=== PATIENT | female | born 1955 | race Caucasian/White ===

== ENCOUNTER 2016-02-28 13:58 | Outpatient (CLI) | payer MEDICAID | END 2016-02-28 13:59 | disposition home or self-care (01) | DX: E11.9 Type 2 diabetes mellitus without complications (principal) ==

== ENCOUNTER 2016-03-13 08:00 | Outpatient (CLI) | payer MEDICAID | END 2016-03-13 08:01 | disposition home or self-care (01) | DX: E78.5 Hyperlipidemia, unspecified (principal); R74.8 Abnormal levels of other serum enzymes ==

== ENCOUNTER 2016-03-18 09:31 | Outpatient (CLI) | payer MEDICAID | END 2016-03-18 09:32 | disposition home or self-care (01) | DX: R74.8 Abnormal levels of other serum enzymes (principal) ==

== ENCOUNTER 2016-09-06 09:32 | Outpatient (CLI) | payer MEDICAID ==
[2016-09-06 12:47] LABS: BASOPHILS # (AUTO) 0.1 10^3/uL (0.0-0.1); BASOPHILS % (AUTO) 0.8 %; EOSINOPHILS # (AUTO) 0.1 10^3/uL (0.0-0.7); EOSINOPHILS % (AUTO) 1.5 %; HCT - HEMATOCRIT 38.2 % (37.0-47.0); HGB - HEMOGLOBIN 12.7 g/dL (12.0-16.0); LYMPHOCYTES # (AUTO) 3.9 10^3/uL (1.5-3.5); LYMPHOCYTES % (AUTO) 39.9 %; MEAN CORPUSCULAR HEMOGLOBIN 28.4 pg (27.0-31.0); MEAN CORPUSCULAR HGB CONC 33.3 g/dL (32.0-36.0); MEAN CORPUSCULAR VOLUME 85.5 fL (81.0-99.0); MEAN PLATELET VOLUME 9.4 fL (7.9-10.8); MONOCYTES # (AUTO) 0.6 10^3/uL (0.0-1.0); MONOCYTES % (AUTO) 5.9 %; NEUTROPHILS % (AUTO) 51.9 %; RED BLOOD COUNT 4.46 10^6/uL (4.20-5.40); RED CELL DISTRIBUTION WIDTH 14.2 % (12.0-15.0); UNCORRECTED WHITE BLOOD COUNT 9.7 x10^3/uL; WHITE BLOOD COUNT 9.7 x10^3/uL (4.8-10.8)
[2016-09-06 13:48] LABS: ALBUMIN/GLOBULIN RATIO 1.4 (1.0-2.2); BILIRUBIN,TOTAL 0.6 mg/dL (0.2-1.0); BUN - BLOOD UREA NITROGEN 28 mg/dL (6-20); CALCIUM 9.6 mg/dL (8.5-10.3); CARBON DIOXIDE - CO2 25 mmol/L (21-32); CHLORIDE 106 mmol/L (101-111); CHOL/HDL RATIO 2.6 (<4.4); CHOLESTEROL 143 mg/dL; CREATININE 0.8 mg/dL (0.4-1.0); GFR - MDRD 73 (>89); GLUCOSE 137 mg/dL (70-100); HDL CHOLESTEROL 55 mg/dL; LDL/HDL RATIO 1.2 (<4.4); SODIUM 139 mmol/L (135-145); TOTAL PROTEIN 7.4 g/dL (6.7-8.2); TRIGLYCERIDES 108 mg/dL; VLDL CHOLESTEROL 22 mg/dL
[2016-09-06 14:32] LABS: HEMOGLOBIN A1C 0.65 g/dL
== END 2016-09-06 09:33 | disposition home or self-care (01) ==
LOC: LAB.N 09:32
PROVIDERS: ATTEND Family Medicine
DX: E78.5 Hyperlipidemia, unspecified (principal); E11.9 Type 2 diabetes mellitus without complications; F41.8 Other specified anxiety disorders
CPT/HCPCS: 36415; 80050; 80061; 83036

== ENCOUNTER 2017-04-02 09:10 | Outpatient (CLI) | payer MEDICAID ==
[2017-04-02 12:55] LABS: BASOPHILS # (AUTO) 0.1 10^3/uL (0.0-0.1); BASOPHILS % (AUTO) 0.6 %; EOSINOPHILS # (AUTO) 0.2 10^3/uL (0.0-0.7); EOSINOPHILS % (AUTO) 1.8 %; HGB - HEMOGLOBIN 13.9 g/dL (12.0-16.0); LYMPHOCYTES # (AUTO) 3.5 10^3/uL (1.5-3.5); LYMPHOCYTES % (AUTO) 37.2 %; MEAN CORPUSCULAR HEMOGLOBIN 28.9 pg (27.0-31.0); MEAN CORPUSCULAR HGB CONC 33.8 g/dL (32.0-36.0); MEAN CORPUSCULAR VOLUME 85.5 fL (81.0-99.0); MEAN PLATELET VOLUME 9.9 fL (7.9-10.8); MONOCYTES # (AUTO) 0.5 10^3/uL (0.0-1.0); MONOCYTES % (AUTO) 5.7 %; NEUTROPHILS # (AUTO) 5.1 10^3/uL (1.5-6.6); NEUTROPHILS % (AUTO) 54.7 %; PLT - PLATELET COUNT 310 10^3/uL (130-450); RED BLOOD COUNT 4.79 10^6/uL (4.20-5.40); RED CELL DISTRIBUTION WIDTH 14.1 % (12.0-15.0); WHITE BLOOD COUNT 9.4 x10^3/uL (4.8-10.8)
[2017-04-02 13:22] LABS: HEMOGLOBIN A1C 0.84 g/dL; HEMOGLOBIN A1C % 7.3 % (4.6-6.2)
[2017-04-02 13:37] LABS: ALBUMIN 4.6 g/dL (3.2-5.5); ALBUMIN/GLOBULIN RATIO 1.5 (1.0-2.2); ALKALINE PHOSPHATASE 55 IU/L (42-121); ALT ALANINE AMINOTRANSFERASE 25 IU/L (10-60); AST ASPARTATE AMINOTRANSFERASE 25 IU/L (10-42); BILIRUBIN,TOTAL 0.4 mg/dL (0.2-1.0); BUN - BLOOD UREA NITROGEN 25 mg/dL (6-20); CARBON DIOXIDE - CO2 22 mmol/L (21-32); CHLORIDE 100 mmol/L (101-111); CHOL/HDL RATIO 3.5 (<4.4); CHOLESTEROL 157 mg/dL; CREATININE 0.8 mg/dL (0.4-1.0); GFR - MDRD 73 (>89); GLUCOSE 175 mg/dL (70-100); HDL CHOLESTEROL 45 mg/dL; LDL CHOLESTEROL,CALCULATED 68 mg/dL; LDL/HDL RATIO 1.5 (<4.4); SODIUM 136 mmol/L (135-145); TOTAL PROTEIN 7.6 g/dL (6.7-8.2); VLDL CHOLESTEROL 44 mg/dL
== END 2017-04-02 09:11 | disposition home or self-care (01) ==
LOC: LAB.N 09:10
PROVIDERS: ATTEND Family Medicine
DX: E78.5 Hyperlipidemia, unspecified (principal); E11.9 Type 2 diabetes mellitus without complications
CPT/HCPCS: 36415; 80053; 80061; 83036; 83721; 85025

== ENCOUNTER 2017-05-08 14:11 | Emergency (ER) | payer MEDICAID ==
[2017-05-08] MEDS ORDERED: CETIRIZINE 10 MG TABLET PO STA (15:14)
[2017-05-08] MEDS ORDERED: ACETAMINOPHEN 325 MG TABLET PO STA (15:14)
[2017-05-08] MEDS ORDERED: traMADol 50 MG TABLET PO STA (15:14)
[2017-05-08 15:34] LABS: VBG BASE EXCESS 1.7 mmol/L (-2 - +2); VBG PCO2 37.5 mmHg (41-51); VBG PH 7.451 (7.31-7.41); VBG PO2 69.5 mmHg (25-47); VBG TOTAL CO2 26.7 mmol/L (24-29)
[2017-05-08 15:36] LABS: BASOPHILS # (AUTO) 0.1 10^3/uL (0.0-0.1); BASOPHILS % (AUTO) 1.2 %; EOSINOPHILS # (AUTO) 0.1 10^3/uL (0.0-0.7); EOSINOPHILS % (AUTO) 1.6 %; HGB - HEMOGLOBIN 13.2 g/dL (12.0-16.0); LYMPHOCYTES # (AUTO) 3.6 10^3/uL (1.5-3.5); LYMPHOCYTES % (AUTO) 40.3 %; MEAN CORPUSCULAR HEMOGLOBIN 28.8 pg (27.0-31.0); MEAN CORPUSCULAR HGB CONC 34.3 g/dL (32.0-36.0); MEAN CORPUSCULAR VOLUME 83.8 fL (81.0-99.0); MEAN PLATELET VOLUME 8.9 fL (7.9-10.8); MONOCYTES # (AUTO) 0.7 10^3/uL (0.0-1.0); MONOCYTES % (AUTO) 7.7 %; NEUTROPHILS # (AUTO) 4.5 10^3/uL (1.5-6.6); NEUTROPHILS % (AUTO) 49.2 %; PLT - PLATELET COUNT 258 10^3/uL (130-450); RED BLOOD COUNT 4.59 10^6/uL (4.20-5.40); RED CELL DISTRIBUTION WIDTH 13.4 % (12.0-15.0)
[2017-05-08 15:40] LABS: KETONES, SERUM (ACETEST) NEGATIVE (NEGATIVE)
[2017-05-08 15:46] LABS: ALBUMIN 4.1 g/dL (3.2-5.5); ALBUMIN/GLOBULIN RATIO 1.4 (1.0-2.2); ALKALINE PHOSPHATASE 56 IU/L (42-121); ALT ALANINE AMINOTRANSFERASE 21 IU/L (10-60); AST ASPARTATE AMINOTRANSFERASE 22 IU/L (10-42); BILIRUBIN,TOTAL < 0.2 mg/dL (0.2-1.0); BUN - BLOOD UREA NITROGEN 23 mg/dL (6-20); CALCIUM 10.2 mg/dL (8.5-10.3); CARBON DIOXIDE - CO2 25 mmol/L (21-32); CHLORIDE 102 mmol/L (101-111); CREATININE 0.7 mg/dL (0.4-1.0); GFR - MDRD 85 (>89); GLUCOSE 185 mg/dL (70-100); LIPASE 31 U/L (22-51); MAGNESIUM 1.6 mg/dL (1.7-2.8); SODIUM 140 mmol/L (135-145)
--- NOTE | 2017-05-08 15:49 | ED Physician Documentation ---
PD HPI HEADACHE - Stated complaint Stated Complaint: WEAKNESS/BLOOD SUGAR HIGH - Chief complaint Chief Complaint: General - History obtained from History obtained from: Patient - History of Present Illness Timing - onset: How many weeks ago (she says her blood sugars have been running higher since being taken off Gyburide by PCP about a month ago. Was running higher sugars and so started on different med (Januvia or such) but was having weight gain over a month and still sugars higher. So seen 5 days ago by PCP and taken off the newer med but not replaced with anything. Sugars higher the past 2 -3 days and having some congestion and frontal headache as well.) Timing - onset during: Light activity Timing - details: Gradual onset, Still present, Waxing and waning Worst headache ever?: No: Worst headache ever? Location: Front, Right Quality: Throbbing, Aching Associated symptoms: Other (nasal congestion and some sinus pressure. No sore throat.). No: Fever, Nausea Improved by: No: Dark room, Quiet Worsened by: No: Light, Noise Contributing factors: Hypertension, Recent illness (sinus pressure and congestion). No: Anticoagulated, Trauma Recently seen: Clinic (see above) Review of Systems Constitutional: denies: Fever, Chills Ears: denies: Ear pain (but feeling of plugged) Nose: reports: Rhinorrhea / runny nose, Congestion, Sinus pressure / pain Throat: denies: Sore throat Cardiac: denies: Chest pain / pressure, Palpitations Respiratory: denies: Dyspnea, Cough, Wheezing GI: denies: Abdominal Pain, Nausea, Vomiting, Diarrhea, Bloody / black stool : denies: Dysuria, Frequency Skin: denies: Rash, Lesions PD PAST MEDICAL HISTORY - Past Medical History Past Medical History: Yes Cardiovascular: High cholesterol Respiratory: None Neuro: Motion sickness Endocrine/Autoimmune: Type 2 diabetes GI: GERD : None HEENT: Chronic hearing loss Psych: Depression, Anxiety Musculoskeletal: Other - Past Surgical History Past Surgical History: Yes 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 - Present Medications Home Medications: Ambulatory Orders Medication Instructions Recorded Confirmed Atorvastatin [Lovastatin] 80 mg PO QPM 12/05/13 05/31/15 Fenofibrate 160 mg PO DAILY 12/05/13 05/31/15 Metformin HCl 1,000 mg PO QDBREAKFAST 12/05/13 05/31/15 Metformin HCl 1,500 mg PO QDDINNER 12/05/13 05/31/15 Venlafaxine HCl [Effexor Xr] 75 mg PO BID 12/05/13 05/31/15 [place]-3S/Dha/Epa/Fish Oil [Fish 1 tab PO DAILY 05/26/15 05/31/15 Oil 1,200 mg Softgel] Acetaminophen [Tylenol Extra 500 mg PO Q6HR PRN 05/31/15 05/31/15 Strength] Cetirizine [ZyrTEC] 10 mg PO DAILY #20 tablet 05/08/17 Tramadol HCl 50 mg PO Q6H PRN #20 tablet 05/08/17 glyBURIDE [Diabeta] 2.5 mg PO DAILY #30 tablet 05/08/17 - Allergies Allergies/Adverse Reactions: Allergies Allergy/AdvReac Type Severity Reaction Status Date / Time No Known Drug Allergies Allergy Verified 05/08/17 14:21 - Social History Does the pt smoke?: Yes Smoking Status: Current every day smoker Does the pt drink ETOH?: No Does the pt have substance abuse?: No - Immunizations Immunizations are current?: Yes - POLST Patient has POLST: No PD ED PE NORMAL - Vitals Vital signs reviewed: Yes - General General: Alert and oriented X 3, No acute distress, Well developed/nourished - HEENT HEENT: Ears normal, Moist mucous membranes, Pharynx benign - Neck Neck: Supple, no meningeal sign, No adenopathy - Cardiac Cardiac: RRR, No murmur, No gallop - Respiratory Respiratory: Clear bilaterally - Abdomen Abdomen: Soft, Non tender - Back Back: No CVA TTP - Derm Derm: Normal color, Warm and dry - Neuro Neuro: Alert and oriented X 3, 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, No motor deficit, No sensory deficit, Normal speech Eye Opening: Spontaneous Motor: Obeys Commands Verbal: Oriented GCS Score: 15 - Psych Psych: Normal mood, Normal affect Results - Vitals Vitals: Vital Signs - 24 hr 05/08/17 05/08/17 14:17 16:01 Temperature 36.7 C 36.6 C Heart Rate 92 76 Respiratory 15 16 Rate Blood Pressure 168/90 H 153/76 H O2 Saturation 97 97 Oxygen O2 Source Room air - Labs Labs: Laboratory Tests 05/08/17 05/08/17 05/08/17 14:39 15:26 15:26 WBC 9.0 RBC 4.59 Hgb 13.2 Hct 38.5 MCV 83.8 MCH 28.8 MCHC 34.3 RDW 13.4 Plt Count 258 MPV 8.9 Neut # 4.5 Lymph # 3.6 H [place] # 0.7 Eos # 0.1 Baso # 0.1 Absolute Nucleated RBC 0.01 Nucleated RBC % 0.1 VBG pH VBG pCO2 VBG pO2 VBG HCO3 VBG Total CO2 VBG O2 Saturation VBG Base Excess Sodium 140 Potassium 3.7 Chloride 102 Carbon Dioxide 25 Anion Gap 13.0 BUN 23 H Creatinine 0.7 Estimated GFR (MDRD) 85 L Glucose 185 H POC Whole Bld Glucose 199 H Calcium 10.2 Magnesium 1.6 L Total Bilirubin < 0.2 L AST 22 ALT 21 Alkaline Phosphatase 56 Total Protein 7.0 Albumin 4.1 Globulin 2.9 Albumin/Globulin Ratio 1.4 Lipase 31 Serum Ketones NEGATIVE 05/08/17 15:26 WBC RBC Hgb Hct MCV MCH MCHC RDW Plt Count MPV Neut # Lymph # [place] # Eos # Baso # Absolute Nucleated RBC Nucleated RBC % VBG pH 7.451 H VBG pCO2 37.5 L VBG pO2 69.5 H VBG HCO3 25.5 VBG Total CO2 26.7 VBG O2 Saturation 95.3 H VBG Base Excess 1.7 Sodium Potassium Chloride Carbon Dioxide Anion Gap BUN Creatinine Estimated GFR (MDRD) Glucose POC Whole Bld Glucose Calcium Magnesium Total Bilirubin AST ALT Alkaline Phosphatase Total Protein Albumin Globulin Albumin/Globulin Ratio Lipase Serum Ketones PD MEDICAL DECISION MAKING - ED course Complexity details: reviewed results, considered differential, d/w patient Departure - Departure Disposition: Home, Self Care Clinical Impression: Elevated blood sugar, Sinus headache Headache Qualifiers: Headache type: unspecified Headache chronicity pattern: acute headache Intractability: not intractable Qualified Code(s): R51 - Headache Condition: Stable Record reviewed to determine appropriate education?: Yes Instructions: ED Cephalgia Unspecified Follow-Up: Ramos Thurston MD [Primary Care Provider] - Prescriptions: Cetirizine [ZyrTEC] 10 mg PO DAILY #20 tablet glyBURIDE [Diabeta] 2.5 mg PO DAILY #30 tablet Tramadol HCl 50 mg PO Q6H PRN #20 tablet PRN Reason: Pain Comments: For now we could have you resume the glyburide you had been on initially before the medication changes. Continue the current dose of metformin. The headache may likely be sinus or allergies and so take daily cetirizine antihistamine. Also ibuprofen or naproxen twice daily for the next week and add Tylenol or tramadol if needed for headache. Follow-up with your primary care regarding sugars and medications for it. Return sooner to the ER if you have increasing symptoms with the headache or sugars. Discharge Date/Time: 05/08/17 16:05
[2017-05-08 16:03] VITALS: BP 153/76
== END 2017-05-08 16:05 | disposition home or self-care (01) ==
LOC: ED 14:11
DX: E11.65 Type 2 diabetes mellitus with hyperglycemia (principal); Z79.84 Long term (current) use of oral hypoglycemic drugs; R51 Headache; K21.9 Gastro-esophageal reflux disease without esophagitis; E78.00 Pure hypercholesterolemia, unspecified; F17.200 Nicotine dependence, unspecified, uncomplicated
CPT/HCPCS: 36415; 80053; 82009; 82803; 83690; 83735; 85025; 99283; A9270

== ENCOUNTER 2017-06-29 13:42 | Outpatient (CLI) | payer MEDICAID ==
--- NOTE | 2017-06-29 18:00 | XRAY Report ---
RIGHT WRIST: 06/29/2017 No comparison. INDICATION: Mass of the right wrist. TECHNIQUE: Three views. FINDINGS: Normal alignment. No evidence of acute fracture. There are mild triscaphe degenerative changes. IMPRESSION: MILD TRISCAPHE JOINT OSTEOARTHRITIS. TD: 06/29/2017 17:59 MTDD
== END 2017-06-29 13:43 | disposition home or self-care (01) ==
LOC: DI.N 13:42
PROVIDERS: ATTEND Family Medicine
DX: M25.831 Other specified joint disorders, right wrist (principal); M25.531 Pain in right wrist; M19.031 Primary osteoarthritis, right wrist

== ENCOUNTER 2017-07-04 09:01 | Outpatient (CLI) | payer MEDICAID ==
[2017-07-04 12:47] LABS: CALCIUM 9.7 mg/dL (8.5-10.3); CREATININE 0.8 mg/dL (0.4-1.0)
[2017-07-04 13:05] LABS: HB2 TOTAL 15.2 g/dL; HEMOGLOBIN A1C 1.13 g/dL
== END 2017-07-04 09:02 ==
LOC: LAB.N 09:01
PROVIDERS: ATTEND Family Medicine
DX: E11.9 Type 2 diabetes mellitus without complications (principal)
CPT/HCPCS: 36415; 80048; 83036

== ENCOUNTER 2017-10-02 18:52 | Emergency (ER) | payer MEDICAID ==
[2017-10-02 18:58] VITALS: BP 141/88
[2017-10-02] MEDS ORDERED: HYDROcod/ACET 5/325 Prepack 4 PO STA (19:26)
--- NOTE | 2017-10-02 19:27 | ED Physician Documentation ---
PD HPI LOWER EXT INJURY - Stated complaint Stated Complaint: RT TOE PX - Chief complaint Chief Complaint: Ext Problem - History obtained from History obtained from: Patient - History of Present Illness PD HPI LOW EXT INJURY LOCATION: Right (She ran into something with her right middle toe earlier today and has moderate pain, no other injuries.) Review of Systems Constitutional: reports: Reviewed and negative Cardiac: reports: Reviewed and negative Respiratory: reports: Reviewed and negative PD PAST MEDICAL HISTORY - Past Medical History Past Medical History: Yes Cardiovascular: High cholesterol Respiratory: None Endocrine/Autoimmune: Type 2 diabetes GI: GERD : None HEENT: Chronic hearing loss Psych: Depression, Anxiety Musculoskeletal: Other - Past Surgical History Past Surgical History: Yes 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 - Present Medications Home Medications: Ambulatory Orders Medication Instructions Recorded Confirmed Atorvastatin [Lovastatin] 80 mg PO QPM 12/05/13 10/02/17 Fenofibrate 160 mg PO DAILY 12/05/13 10/02/17 Metformin HCl 1,000 mg PO QDBREAKFAST 12/05/13 10/02/17 Metformin HCl 1,500 mg PO QDDINNER 12/05/13 10/02/17 Venlafaxine HCl [Effexor Xr] 75 mg PO BID 12/05/13 10/02/17 [place]-3S/Dha/Epa/Fish Oil [Fish 1 tab PO DAILY 05/26/15 10/02/17 Oil 1,200 mg Softgel] Acetaminophen [Tylenol Extra 500 mg PO Q6HR PRN 05/31/15 10/02/17 Strength] Cetirizine [ZyrTEC] 10 mg PO DAILY #20 tablet 05/08/17 10/02/17 Tramadol HCl 50 mg PO Q6H PRN #20 tablet 05/08/17 10/02/17 glyBURIDE [Diabeta] 2.5 mg PO DAILY #30 tablet 05/08/17 10/02/17 HYDROcod/ACETAM 5/325 [[place] 5/325] 1 - 2 ea PO Q6H PRN #10 tablet 10/02/17 - Allergies Allergies/Adverse Reactions: Allergies Allergy/AdvReac Type Severity Reaction Status Date / Time No Known Drug Allergies Allergy Verified 10/02/17 19:23 - Social History Does the pt smoke?: Yes Smoking Status: Current every day smoker Does the pt drink ETOH?: No Does the pt have substance abuse?: No - Immunizations Immunizations are current?: Yes - POLST Patient has POLST: No PD ED PE NORMAL - Vitals Vital signs reviewed: Yes - General General: Alert and oriented X 3, No acute distress - Extremities Extremities: Other (Right middle toe is ecchymotic across the top and tender but without limited range of motion or neurovascular compromise. No open wounds.) - Neuro Neuro: Alert and oriented X 3, Normal speech Results - Vitals Vitals: Vital Signs - 24 hr 10/02/17 18:54 Temperature 36.4 C L Heart Rate 83 Respiratory 18 Rate Blood Pressure 141/88 H O2 Saturation 95 Oxygen O2 Source Room air - Rads (name of study) R 3rd toe Radiology: EMP read contemporaneously (normal) PD MEDICAL DECISION MAKING - Sepsis Event Vital Signs: Vital Signs - 24 hr 10/02/17 18:54 Temperature 36.4 C L Heart Rate 83 Respiratory 18 Rate Blood Pressure 141/88 H O2 Saturation 95 Oxygen O2 Source Room air Departure - Departure Disposition: 01 Home, Self Care Clinical Impression: Toe sprain Condition: Good Record reviewed to determine appropriate education?: Yes Instructions: ED Sprain Toe Prescriptions: HYDROcod/ACETAM 5/325 [[place] 5/325] 1 - 2 ea PO Q6H PRN #10 tablet PRN Reason: Pain Comments: Your blood pressure was elevated today on check into the emergency department. This does not mean that you have hypertension, it is a common phenomenon to come to the emergency department and have elevated blood pressure. I recommend that you see your primary care physician within the week to have it rechecked when you are feeling better.
--- NOTE | 2017-10-02 19:56 | XRAY Report ---
Procedure Date: 10/02/2017 Accession Number: [id number] / [id number] Procedure: XR - Toe(s) RT CPT Code: FULL RESULT: EXAM: RIGHT THIRD TOE RADIOGRAPHY EXAM DATE: 10/02/2017 07:24 PM. CLINICAL HISTORY: Stubbed toe. Bruising. Pain. Swelling. Diabetic. COMPARISON: None. TECHNIQUE: 3 views. FINDINGS: Bones: Normal. No fracture or bone lesion. Joints: Normal. No subluxations. Soft Tissues: Unremarkable. IMPRESSION: Normal third toe radiography. RADIA
== END 2017-10-02 20:04 | disposition home or self-care (01) ==
LOC: ED 18:52
DX: S93.504A Unspecified sprain of right lesser toe(s), initial encounter (principal); R03.0 Elevated blood-pressure reading, without diagnosis of hypertension; F17.200 Nicotine dependence, unspecified, uncomplicated; E11.9 Type 2 diabetes mellitus without complications; Z79.84 Long term (current) use of oral hypoglycemic drugs; W22.8XXA Striking against or struck by other objects, initial encounter
CPT/HCPCS: 73660; 99282; 99283

== ENCOUNTER 2017-10-15 08:00 | Outpatient (CLI) | payer MEDICAID ==
[2017-10-15 12:25] LABS: HB2 TOTAL 14.6 g/dL; HEMOGLOBIN A1C 1.03 g/dL; HEMOGLOBIN A1C % 8.6 % (4.6-6.2)
[2017-10-15 12:32] LABS: ALBUMIN 4.4 g/dL (3.2-5.5); ALBUMIN/GLOBULIN RATIO 1.6 (1.0-2.2); ALKALINE PHOSPHATASE 49 IU/L (42-121); ALT ALANINE AMINOTRANSFERASE 22 IU/L (10-60); AST ASPARTATE AMINOTRANSFERASE 24 IU/L (10-42); BILIRUBIN,TOTAL 0.9 mg/dL (0.2-1.0); BUN - BLOOD UREA NITROGEN 24 mg/dL (6-20); CALCIUM 9.5 mg/dL (8.5-10.3); CARBON DIOXIDE - CO2 22 mmol/L (21-32); CHLORIDE 102 mmol/L (101-111); CHOLESTEROL 141 mg/dL; CREATININE 0.7 mg/dL (0.4-1.0); GFR - MDRD 85 (>89); GLUCOSE 159 mg/dL (70-100); HDL CHOLESTEROL 35 mg/dL; LDL CHOLESTEROL,CALCULATED 60 mg/dL; LDL/HDL RATIO 1.7 (<4.4); SODIUM 137 mmol/L (135-145); TOTAL PROTEIN 7.2 g/dL (6.7-8.2); VLDL CHOLESTEROL 46 mg/dL
== END 2017-10-15 08:01 | disposition home or self-care (01) ==
LOC: LAB.N 08:00
PROVIDERS: ATTEND Family Medicine
DX: E11.65 Type 2 diabetes mellitus with hyperglycemia (principal); E78.1 Pure hyperglyceridemia
CPT/HCPCS: 36415; 80053; 80061; 81599; 83036; 83721; 84681

== ENCOUNTER 2017-12-25 15:06 | Emergency (ER) | payer MEDICAID ==
[2017-12-25 15:26] VITALS: BP 135/77
[2017-12-25] MEDS ORDERED: oxyCODONE 5 MG TABLET PO STA (15:43)
[2017-12-25] MEDS ORDERED: LIDOCAINE 2%-EPI 1:100000 20 ML MDV SUBQ STA (15:43)
[2017-12-25] MEDS ORDERED: SULFAMETH/TRIMETH DS 800/160 MG TABLET PO STA (15:44)
--- NOTE | 2017-12-25 15:47 | ED Physician Documentation ---
PD HPI SKIN - Stated complaint Stated Complaint: SORES ON UPPER LT THIGH - Chief complaint Chief Complaint: Wound - History obtained from History obtained from: Patient - History of Present Illness Timing - onset: Today Timing - duration: Weeks (1) Timing - details: Gradual onset Pain level max: 8 Pain level now: 6 Location: Other (L thigh) Quality / character: Painful, Burning, Raised, Swelling Improved by: Other (nothing) Worsened by (comment): COMMENT (nothing) Associated symptoms: No: Fever, Myalgias, Joint pain, Headache, Facial swelling, Dyspnea, Abd pain, N/V/D, Urinary sx Contributing factors: Unknown. No: Exposed to medication, Exposed to food, Exposed to soap / lotion, Exposed to Poison avinash/oak, Insect bite /sting, Recent illness Similar symptoms before: Diagnosis (abscess) Recently seen: Not recently seen - Additional information Additional information: abscess to L thigh Review of Systems Constitutional: denies: Fever, Chills Skin: denies: Rash PD PAST MEDICAL HISTORY - Past Medical History Cardiovascular: High cholesterol Respiratory: None Endocrine/Autoimmune: Type 2 diabetes GI: GERD : None HEENT: Chronic hearing loss Psych: Depression, Anxiety Musculoskeletal: Other - Past Surgical History Past Surgical History: Yes 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 - Present Medications Home Medications: Ambulatory Orders Medication Instructions Recorded Confirmed Atorvastatin [Lovastatin] 80 mg PO QPM 12/05/13 10/02/17 Fenofibrate 160 mg PO DAILY 12/05/13 10/02/17 Metformin HCl 1,000 mg PO QDBREAKFAST 12/05/13 10/02/17 Metformin HCl 1,500 mg PO QDDINNER 12/05/13 10/02/17 Venlafaxine HCl [Effexor Xr] 75 mg PO BID 12/05/13 10/02/17 [place]-3S/Dha/Epa/Fish Oil [Fish 1 tab PO DAILY 05/26/15 10/02/17 Oil 1,200 mg Softgel] Acetaminophen [Tylenol Extra 500 mg PO Q6HR PRN 05/31/15 10/02/17 Strength] Cetirizine [ZyrTEC] 10 mg PO DAILY #20 tablet 05/08/17 10/02/17 Tramadol HCl 50 mg PO Q6H PRN #20 tablet 05/08/17 10/02/17 glyBURIDE [Diabeta] 2.5 mg PO DAILY #30 tablet 05/08/17 10/02/17 HYDROcod/ACETAM 5/325 [[place] 5/325] 1 - 2 ea PO Q6H PRN #10 tablet 10/02/17 Cephalexin [Keflex] 500 mg PO Q6H #28 capsule 12/25/17 Hydrocodone/Acetaminophen 1 - 2 each PO Q6H PRN #10 tablet 12/25/17 [Hydrocodon-Acetaminophen 5-325] Sulfamethox/Trimeth 800/160 1 each PO BID #14 tablet 12/25/17 [Bactrim Ds 800/160] - Allergies Allergies/Adverse Reactions: Allergies Allergy/AdvReac Type Severity Reaction Status Date / Time No Known Drug Allergies Allergy Verified 12/25/17 15:26 - Social History Does the pt smoke?: Yes Smoking Status: Current some day smoker Does the pt drink ETOH?: No Does the pt have substance abuse?: No - Immunizations Immunizations are current?: Yes - POLST Patient has POLST: No PD ED PE NORMAL - Vitals Vital signs reviewed: Yes - General General: Alert and oriented X 3, No acute distress - HEENT HEENT: Moist mucous membranes - Neck Neck: Supple, no meningeal sign - Derm Derm: Warm and dry - Extremities Extremities: Other (L thigh - 2x2cm indurated area with fluctuance to L proximal medial thigh. 8x8cm surrounding erythema. ) - Neuro Neuro: Alert and oriented X 3 - Psych Psych: Normal mood, Normal affect Results - Vitals Vitals: Vital Signs - 24 hr 12/25/17 15:20 Temperature 36.2 C L Heart Rate 82 Respiratory 16 Rate Blood Pressure 135/77 H O2 Saturation 97 Oxygen O2 Source Room air Procedures - Abscess I&D (location) L thigh Preparation: Confirmed with ultrasound, Chlorhexadine, Lidocaine 2 %, With epi Incision: Incised with scalpel, Purulent drainage, Loculations broken, Irrigated, Packed, Culture obtained Other: Pt tolerated well, Dressing applied, Antibiotic prescribed PD MEDICAL DECISION MAKING - ED course Complexity details: considered differential, d/w patient ED course: Patient is a 62-year-old female with a left thigh abscess with significant surrounding cellulitis. Will place on antibiotics for home. Incision and drainage performed in the emergency department. Tolerated well. Patient counseled regarding signs and symptoms for which I believe and urgent re- evaluation would be necessary. Patient with good understanding of and agreement to plan and is comfortable going home at this time This document was made in part using voice recognition software. While efforts are made to proofread this document, sound alike and grammatical errors may occur. Departure - Departure Disposition: 01 Home, Self Care Clinical Impression: Abscess Condition: Good Instructions: ED Abscess IandD Follow-Up: Ramos Thurston MD [Primary Care Provider] - Within 3 Days (for wound check) Prescriptions: Cephalexin [Keflex] 500 mg PO Q6H #28 capsule Hydrocodone/Acetaminophen [Hydrocodon-Acetaminophen 5-325] 1 - 2 each PO Q6H PRN #10 tablet PRN Reason: pain Sulfamethox/Trimeth 800/160 [Bactrim Ds 800/160] 1 each PO BID #14 tablet Comments: Take all antibiotics until gone. Return if you worsen. Follow-up with your doctor in 3 days for a wound check. Do not drink alcohol or drive while on narcotic pain medicine. Note that many narcotic pain relievers also contain tylenol/acetaminophen. Please ensure that your total dose of acetaminophen from all sources does not exceed 3 grams (3000mg) per day. You may constipated on this medication, take a stool softener such as "Colace" twice a day while you are on it. Also recommend a [id number]-ptu-[id number] laxative such as senna or MiraLAX any day that you do not have a bowel movement. If you received narcotic pain medication in the emergency department, do not drive or operate machinery for the next 24 hours. Discharge Date/Time: 12/25/17 16:02
== END 2017-12-25 16:02 | disposition home or self-care (01) ==
LOC: ED 15:06
DX: L02.416 Cutaneous abscess of left lower limb (principal); L03.116 Cellulitis of left lower limb; E11.9 Type 2 diabetes mellitus without complications; Z79.84 Long term (current) use of oral hypoglycemic drugs; F17.200 Nicotine dependence, unspecified, uncomplicated
CPT/HCPCS: 10060; 87070; 87205; 99283; A9270

== ENCOUNTER 2018-01-24 07:37 | Outpatient (CLI) | payer MEDICAID ==
[2018-01-24 14:16] LABS: CALCIUM 9.2 mg/dL (8.5-10.3); CREATININE 0.7 mg/dL (0.4-1.0)
[2018-01-24 15:46] LABS: HB2 TOTAL 13.7 g/dL; HEMOGLOBIN A1C 0.63 g/dL; HEMOGLOBIN A1C % 6.4 % (4.6-6.2)
== END 2018-01-24 23:59 | disposition home or self-care (01) ==
LOC: LAB.N 07:37
PROVIDERS: ATTEND Family Medicine
DX: E11.65 Type 2 diabetes mellitus with hyperglycemia (principal)
CPT/HCPCS: 36415; 80048; 83036

== ENCOUNTER 2018-06-07 08:00 | Outpatient (CLI) | payer MEDICAID ==
[2018-06-07 13:29] LABS: ALBUMIN 4.5 g/dL (3.2-5.5); ALBUMIN/GLOBULIN RATIO 1.6 (1.0-2.2); ALKALINE PHOSPHATASE 43 IU/L (42-121); ALT ALANINE AMINOTRANSFERASE 22 IU/L (10-60); AST ASPARTATE AMINOTRANSFERASE 24 IU/L (10-42); BILIRUBIN,TOTAL 0.7 mg/dL (0.2-1.0); BUN - BLOOD UREA NITROGEN 24 mg/dL (6-20); CALCIUM 9.6 mg/dL (8.5-10.3); CARBON DIOXIDE - CO2 26 mmol/L (21-32); CHLORIDE 103 mmol/L (101-111); CHOLESTEROL 130 mg/dL; CREATININE 0.5 mg/dL (0.4-1.0); GFR - MDRD 125 (>89); GLUCOSE 127 mg/dL (70-100); HDL CHOLESTEROL 43 mg/dL; LDL CHOLESTEROL,CALCULATED 64 mg/dL; LDL/HDL RATIO 1.5 (<4.4); SODIUM 139 mmol/L (135-145); TOTAL PROTEIN 7.3 g/dL (6.7-8.2); VLDL CHOLESTEROL 23 mg/dL
[2018-06-07 14:04] LABS: HB2 TOTAL 14.6 g/dL; HEMOGLOBIN A1C 0.69 g/dL; HEMOGLOBIN A1C % 6.5 % (4.6-6.2)
[2018-06-07 19:16] LABS: BASOPHILS % (AUTO) 0.4 %; EOSINOPHILS # (AUTO) 0.2 10^3/uL (0.0-0.7); EOSINOPHILS % (AUTO) 2.2 %; HGB - HEMOGLOBIN 13.1 g/dL (12.0-16.0); LYMPHOCYTES # (AUTO) 2.9 10^3/uL (1.5-3.5); LYMPHOCYTES % (AUTO) 41.9 %; MEAN CORPUSCULAR HEMOGLOBIN 27.6 pg (27.0-31.0); MEAN CORPUSCULAR HGB CONC 31.8 g/dL (32.0-36.0); MEAN CORPUSCULAR VOLUME 86.7 fL (81.0-99.0); MEAN PLATELET VOLUME 9.5 fL (7.9-10.8); MONOCYTES # (AUTO) 0.4 10^3/uL (0.0-1.0); MONOCYTES % (AUTO) 6.3 %; NEUTROPHILS # (AUTO) 3.4 10^3/uL (1.5-6.6); NEUTROPHILS % (AUTO) 49.2 %; PLT - PLATELET COUNT 283 10^3/uL (130-450); RED BLOOD COUNT 4.75 10^6/uL (4.20-5.40); RED CELL DISTRIBUTION WIDTH 14.4 % (12.0-15.0)
== END 2018-06-07 23:59 | disposition home or self-care (01) ==
LOC: LAB.N 08:00
PROVIDERS: ATTEND Physician Assistant Medical
DX: E11.65 Type 2 diabetes mellitus with hyperglycemia (principal)
CPT/HCPCS: 36415; 80053; 80061; 83036; 83721; 85025

== ENCOUNTER 2018-07-16 08:00 | Outpatient (CLI) | payer MEDICAID ==
[2018-07-16 18:54] LABS: BASOPHILS # (AUTO) 0.1 10^3/uL (0.0-0.1); BASOPHILS % (AUTO) 0.7 %; EOSINOPHILS # (AUTO) 0.2 10^3/uL (0.0-0.7); EOSINOPHILS % (AUTO) 1.9 %; HGB - HEMOGLOBIN 13.6 g/dL (12.0-16.0); LYMPHOCYTES # (AUTO) 3.9 10^3/uL (1.5-3.5); LYMPHOCYTES % (AUTO) 42.6 %; MEAN CORPUSCULAR HEMOGLOBIN 27.8 pg (27.0-31.0); MEAN CORPUSCULAR HGB CONC 32.1 g/dL (32.0-36.0); MEAN CORPUSCULAR VOLUME 86.6 fL (81.0-99.0); MONOCYTES # (AUTO) 0.6 10^3/uL (0.0-1.0); MONOCYTES % (AUTO) 6.9 %; NEUTROPHILS # (AUTO) 4.3 10^3/uL (1.5-6.6); NEUTROPHILS % (AUTO) 47.9 %; PLT - PLATELET COUNT 328 10^3/uL (130-450); RED CELL DISTRIBUTION WIDTH 14.2 % (12.0-15.0); WHITE BLOOD COUNT 9.1 x10^3/uL (4.8-10.8)
[2018-07-16 19:04] LABS: AMYLASE 88 U/L (28-100); LIPASE 107 U/L (22-51)
== END 2018-07-16 23:59 | disposition home or self-care (01) ==
LOC: LAB.N 08:00
PROVIDERS: ATTEND Physician Assistant Medical
DX: R10.13 Epigastric pain (principal)
CPT/HCPCS: 36415; 82150; 83690; 85025

== ENCOUNTER 2018-09-23 | Outpatient (CLI) | payer MEDICAID | END 2018-09-23 23:59 | disposition home or self-care (01) | DX: E11.9 Type 2 diabetes mellitus without complications (principal) ==

== ENCOUNTER 2019-01-08 14:15 | Outpatient (CLI) | payer MEDICAID ==
[2019-01-08 18:57] LABS: BASOPHILS # (AUTO) 0.1 10^3/uL (0.0-0.1); BASOPHILS % (AUTO) 0.7 %; EOSINOPHILS # (AUTO) 0.2 10^3/uL (0.0-0.7); EOSINOPHILS % (AUTO) 1.8 %; HGB - HEMOGLOBIN 13.5 g/dL (12.0-16.0); LYMPHOCYTES # (AUTO) 3.6 10^3/uL (1.5-3.5); LYMPHOCYTES % (AUTO) 33.8 %; MEAN CORPUSCULAR HEMOGLOBIN 28.5 pg (27.0-31.0); MEAN CORPUSCULAR HGB CONC 32.3 g/dL (32.0-36.0); MEAN CORPUSCULAR VOLUME 88.2 fL (81.0-99.0); MEAN PLATELET VOLUME 11.4 fL (7.9-10.8); MONOCYTES # (AUTO) 0.8 10^3/uL (0.0-1.0); MONOCYTES % (AUTO) 7.3 %; NEUTROPHILS % (AUTO) 55.8 %; PLT - PLATELET COUNT 354 10^3/uL (130-450); RED BLOOD COUNT 4.74 10^6/uL (4.20-5.40); RED CELL DISTRIBUTION WIDTH 13.5 % (12.0-15.0); WHITE BLOOD COUNT 10.7 x10^3/uL (4.8-10.8)
[2019-01-08 19:13] LABS: ALBUMIN 4.5 g/dL (3.2-5.5); ALBUMIN/GLOBULIN RATIO 1.5 (1.0-2.2); BILIRUBIN,TOTAL 0.5 mg/dL (0.2-1.0); CALCIUM 9.9 mg/dL (8.5-10.3); CREATININE 0.7 mg/dL (0.4-1.0); TOTAL PROTEIN 7.5 g/dL (6.7-8.2)
[2019-01-08 19:14] LABS: HB2 TOTAL 13.9 g/dL; HEMOGLOBIN A1C 0.67 g/dL; HEMOGLOBIN A1C % 6.6 % (4.6-6.2)
== END 2019-01-08 23:59 | disposition home or self-care (01) ==
LOC: LAB.N 14:15
PROVIDERS: ATTEND Physician Assistant Medical
DX: E11.65 Type 2 diabetes mellitus with hyperglycemia (principal); R10.13 Epigastric pain; R74.8 Abnormal levels of other serum enzymes; E78.5 Hyperlipidemia, unspecified
CPT/HCPCS: 36415; 80053; 83036; 83690; 85025

== ENCOUNTER 2019-04-21 08:17 | Outpatient (CLI) | payer MEDICAID ==
[2019-04-21 13:01] LABS: HB2 TOTAL 13.8 g/dL; HEMOGLOBIN A1C 0.71 g/dL; HEMOGLOBIN A1C % 6.9 % (4.6-6.2)
== END 2019-04-21 23:59 | disposition home or self-care (01) ==
LOC: LAB.N 08:17
PROVIDERS: ATTEND Physician Assistant Medical
DX: E11.65 Type 2 diabetes mellitus with hyperglycemia (principal)
CPT/HCPCS: 36415; 83036

== ENCOUNTER 2019-08-18 09:53 | Emergency (ER) | payer MEDICAID ==
[2019-08-18] MEDS ORDERED: CYCLOBENZAPRINE 10 MG TABLET PO STA (11:16)
[2019-08-18] MEDS ORDERED: IBUPROFEN 800 MG TABLET PO STA (11:16)
--- NOTE | 2019-08-18 11:19 | ED Physician Documentation ---
PD HPI NECK PAIN - Stated complaint Stated Complaint: NECK PX - Chief complaint Chief Complaint: Trauma Hd/Nk - History obtained from History obtained from: Patient - Additional information Additional information: 63-year-old woman with history of diabetes and hypertension presents with 2 to 3 days of bilateral neck pain. There is no significant trauma with the exception of the fact that she was sitting on a curb at a child's birthday republic[employer] 3 days ago and it felt awkward when she got up. Since then she had initially left greater than right now right greater than left-sided neck pain and difficulty with rotation. There is no fever. No weakness, numbness, tingling, saddle anesthesia. 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 - Present Medications Home Medications: Ambulatory Orders Medication Instructions Recorded Confirmed Atorvastatin [Lovastatin] 80 mg PO QPM 12/05/13 10/02/17 Fenofibrate 160 mg PO DAILY 12/05/13 10/02/17 Metformin HCl 1,000 mg PO QDBREAKFAST 12/05/13 10/02/17 Metformin HCl 1,500 mg PO QDDINNER 12/05/13 10/02/17 Venlafaxine HCl [Effexor Xr] 75 mg PO BID 12/05/13 10/02/17 [place]-3S/Dha/Epa/Fish Oil [Fish 1 tab PO DAILY 05/26/15 10/02/17 Oil 1,200 mg Softgel] Acetaminophen [Tylenol Extra 500 mg PO Q6HR PRN 05/31/15 10/02/17 Strength] Cetirizine [ZyrTEC] 10 mg PO DAILY #20 tablet 05/08/17 10/02/17 Tramadol HCl 50 mg PO Q6H PRN #20 tablet 05/08/17 10/02/17 glyBURIDE [Diabeta] 2.5 mg PO DAILY #30 tablet 05/08/17 10/02/17 HYDROcod/ACETAM 5/325 [[place] 5/325] 1 - 2 ea PO Q6H PRN #10 tablet 10/02/17 Cephalexin [Keflex] 500 mg PO Q6H #28 capsule 12/25/17 Hydrocodone/Acetaminophen 1 - 2 each PO Q6H PRN #10 tablet 12/25/17 [Hydrocodon-Acetaminophen 5-325] Sulfamethox/Trimeth 800/160 1 each PO BID #14 tablet 12/25/17 [Bactrim Ds 800/160] Cyclobenzaprine [Flexeril] 10 mg PO TID PRN #20 tablet 08/18/19 Ibuprofen [Motrin] 800 mg PO Q8H PRN #20 tablet 08/18/19 - Allergies Allergies/Adverse Reactions: Allergies Allergy/AdvReac Type Severity Reaction Status Date / Time No Known Drug Allergies Allergy Verified 08/18/19 10:07 - Social History Does the pt smoke?: Yes Smoking Status: Current every day smoker Does the pt drink ETOH?: No Does the pt have substance abuse?: No - Immunizations Immunizations are current?: Yes - POLST Patient has POLST: No PD ED PE NORMAL - Vitals Vital signs reviewed: Yes - General General: Alert and oriented X 3, No acute distress - HEENT HEENT: PERRL, EOMI - Neck Neck: Other (She is tender over both sternocleidomastoids and has difficulty with neck rotation especially to the right. Flexion extension is relatively painless comparatively.) - Extremities Extremities: Other (Equal and normal bilateral batch tester strength, thumb extension, interosseous strength, flexion and extension of the wrist, and sensation throughout the arms.) - Neuro Neuro: Alert and oriented X 3, Normal speech Results - Vitals Vitals: Vital Signs - 24 hr 08/18/19 10:07 Temperature 36.6 C Heart Rate 84 Respiratory 18 Rate Blood Pressure 179/91 H O2 Saturation 94 Oxygen O2 Source Room air PD MEDICAL DECISION MAKING - ED course ED course: 63-year-old woman presents with neck pain, clinically consistent with sternocleidomastoid spasm. No evidence of meningitis, or trauma. Departure - Departure Disposition: 01 Home, Self Care Clinical Impression: Sternocleidomastoid muscle tenderness Condition: Good Instructions: ED Neck Back Pain General Prescriptions: Cyclobenzaprine [Flexeril] 10 mg PO TID PRN #20 tablet PRN Reason: Spasms Ibuprofen [Motrin] 800 mg PO Q8H PRN #20 tablet PRN Reason: PAIN &/OR FEVER Comments: Do not drink or drive while taking prescription muscle relaxers. Return for new or worsening symptoms, follow-up with your doctor towards the end of the week if not better. You can use heat and gentle stretching to help as well.
[2019-08-18 11:29] VITALS: BP 174/102
== END 2019-08-18 11:26 | disposition home or self-care (01) ==
LOC: ED 09:53
DX: M79.12 Myalgia of auxiliary muscles, head and neck (principal); I10 Essential (primary) hypertension; E11.9 Type 2 diabetes mellitus without complications; Z79.84 Long term (current) use of oral hypoglycemic drugs; F17.200 Nicotine dependence, unspecified, uncomplicated
CPT/HCPCS: 99282; 99284; A9270

== ENCOUNTER 2019-12-24 08:00 | Outpatient (CLI) | payer MEDICARE ==
[2019-12-24 12:23] LABS: CALCIUM 10.3 mg/dL (8.5-10.3); CREATININE 0.8 mg/dL (0.4-1.0)
[2019-12-24 12:39] LABS: HEMOGLOBIN A1c% 7.3 % (4.27-6.07)
== END 2019-12-24 23:59 | disposition home or self-care (01) ==
LOC: LAB.WCP 08:00
PROVIDERS: ATTEND Nurse Practitioner Family
DX: E11.9 Type 2 diabetes mellitus without complications (principal)
CPT/HCPCS: 36415; 80048; 83036

== ENCOUNTER 2020-01-28 12:21 | Emergency (ER) | payer MEDICAID, MEDICARE ==
[2020-01-28 13:12] LABS: BASOPHILS % (AUTO) 0.3 %; HGB - HEMOGLOBIN 13.9 g/dL (12.0-16.0); LYMPHOCYTES # (AUTO) 1.1 10^3/uL (1.5-3.5); MEAN CORPUSCULAR HEMOGLOBIN 27.6 pg (27.0-31.0); MEAN CORPUSCULAR HGB CONC 32.6 g/dL (32.0-36.0); MEAN CORPUSCULAR VOLUME 84.9 fL (81.0-99.0); MEAN PLATELET VOLUME 10.7 fL (7.9-10.8); MONOCYTES # (AUTO) 0.6 10^3/uL (0.0-1.0); MONOCYTES % (AUTO) 7.4 %; NEUTROPHILS % (AUTO) 77.6 %; PLT - PLATELET COUNT 243 10^3/uL (130-450); RED BLOOD COUNT 5.03 10^6/uL (4.20-5.40); RED CELL DISTRIBUTION WIDTH 13.3 % (12.0-15.0); WHITE BLOOD COUNT 7.7 x10^3/uL (4.8-10.8)
[2020-01-28 13:26] LABS: ALBUMIN 3.8 g/dL (3.2-5.5); BILIRUBIN,TOTAL 0.9 mg/dL (0.2-1.0); CALCIUM 9.3 mg/dL (8.5-10.3); CREATININE 0.8 mg/dL (0.4-1.0); TOTAL PROTEIN 7.8 g/dL (6.7-8.2)
[2020-01-28 13:33] LABS: GLUCOSE, URINE (UA) NEGATIVE (NEGATIVE); KETONES,URINE (UA) NEGATIVE (NEGATIVE); LEUKOCYTE ESTERASE, URINE SMALL (NEGATIVE); NITRITE,URINE NEGATIVE (NEGATIVE); OCCULT BLOOD,URINE NEGATIVE (NEGATIVE); PH,URINE 5.5 PH (5.0-7.5); PROTEIN,URINE TRACE mg/dL (NEGATIVE); UROBILINOGEN,URINE 0.2 (NORMAL) E.U./dL (NORMAL)
[2020-01-28 13:38] LABS: BILIRUBIN,URINE NEGATIVE (NEGATIVE); CLARITY,URINE CLEAR (CLEAR); ICTOTEST,URINE NEGATIVE
[2020-01-28] MEDS ORDERED: SODIUM CHLORIDE 0.9% 1,000 ML IV STA (13:48)
[2020-01-28] MEDS ORDERED: HYDROmorphone 1 MG/ML CARPUJECT IVP STA (13:48)
--- NOTE | 2020-01-28 13:49 | ED Physician Documentation ---
History of Present Illness - Stated complaint Stated Complaint: STOMACH PX - Chief complaint Chief Complaint: Abd Pain - History obtained from History obtained from: Patient - History of Present Illness Timing: Prior to arrival - Additonal information Additional information: 64-year-old female presents the emergency department for evaluation of 2 weeks constant left upper quadrant abdominal pain and associated diarrhea. She states that she has been feeling hot and sweating a lot but denies any fever. She is a diabetic with blood sugars ranging in the 120s to the 200s. She does take metformin as well as a newer insulin. She has no vomiting. She denies any recent antibiotic use or that the diarrhea is bloody. Past surgical history includes x2 as well as previous cholecystectomy. Review of Systems Constitutional: reports: Fever, Chills Eyes: reports: Reviewed and negative Ears: reports: Reviewed and negative Nose: reports: Reviewed and negative Throat: reports: Reviewed and negative Cardiac: reports: Reviewed and negative Respiratory: reports: Reviewed and negative GI: reports: Abdominal Pain, Diarrhea. 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 - Present Medications Home Medications: Ambulatory Orders Medication Instructions Recorded Confirmed Atorvastatin [Lovastatin] 80 mg PO QPM 12/05/13 01/28/20 Fenofibrate 160 mg PO DAILY 12/05/13 01/28/20 Metformin HCl 1,000 mg PO BID 12/05/13 01/28/20 Venlafaxine HCl [Effexor Xr] 75 mg PO BID 12/05/13 01/28/20 Cetirizine [ZyrTEC] 10 mg PO DAILY #20 tablet 05/08/17 01/28/20 Azithromycin [Zithromax] 0 mg PO DAILY #6 tablet 01/28/20 Lisinopril [Prinivil] 10 mg PO DAILY 01/28/20 01/28/20 Loperamide HCl [Imodium A-D] 2 mg PO BID PRN #20 tablet 01/28/20 Oxybutynin [Ditropan] 5 mg PO BID PRN 01/28/20 01/28/20 - Allergies Allergies/Adverse Reactions: Allergies Allergy/AdvReac Type Severity Reaction Status Date / Time No Known Drug Allergies Allergy Verified 08/18/19 10:07 - Social History Does the pt smoke?: Yes Smoking Status: Former smoker Does the pt drink ETOH?: No Does the pt have substance abuse?: No - Immunizations Immunizations are current?: Yes - POLST Patient has POLST: No PD ED PE EXPANDED - General General: Alert, No acute distress - Cardiac Cardiac: Regular Rate, Regular Rhythm, Femoral strong equal, Pedal strong equal, Cap refill < 2 sec. No: Murmur Present - Respiratory Respiratory: Clear to ausultation paulo. No: Distress, Labored - Abdomen Abdomen: Hyperactive BS, LUQ, LLQ. No: Rebound, Guarding - Neuro Neuro: Alert and Oriented X 3, CNII-XII intact - GCS Eye Opening: Spontaneous Motor: Obeys Commands Verbal: Oriented Total: 15 Results - Vitals Vitals: Vital Signs - 24 hr 01/28/20 01/28/20 12:34 14:49 Temperature 36.8 C Heart Rate 105 H 99 Respiratory 16 12 Rate Blood Pressure 165/83 H 150/98 H O2 Saturation 100 95 Oxygen O2 Source Room air - Labs Labs: Laboratory Tests 01/28/20 01/28/20 01/28/20 12:58 12:58 13:20 WBC 7.7 RBC 5.03 Hgb 13.9 Hct 42.7 MCV 84.9 MCH 27.6 MCHC 32.6 RDW 13.3 Plt Count 243 MPV 10.7 Neut # (Auto) 6.0 Lymph # (Auto) 1.[address] # (Auto) 0.6 Eos # (Auto) 0.0 Baso # (Auto) 0.0 Absolute Nucleated RBC 0.00 Nucleated RBC % 0.0 Sodium 129 L Potassium 3.8 Chloride 94 L Carbon Dioxide 22 Anion Gap 13.0 BUN 17 Creatinine 0.8 Estimated GFR (MDRD) 72 L Glucose 176 H Calcium 9.3 Total Bilirubin 0.9 AST 44 H ALT 34 Alkaline Phosphatase 47 Total Protein 7.8 Albumin 3.8 Globulin 4.0 Albumin/Globulin Ratio 1.0 Lipase 19 L Urine Color YELLOW Urine Clarity CLEAR Urine pH 5.5 Ur Specific [place] 1.020 Urine Protein TRACE Urine Glucose (UA) NEGATIVE Urine Ketones NEGATIVE Urine Occult Blood NEGATIVE Urine Nitrite NEGATIVE Urine Bilirubin NEGATIVE Urine Urobilinogen 0.2 (NORMAL) Ur Leukocyte Esterase SMALL H Urine RBC None Seen Urine WBC 0-3 Ur Squamous Epith Cells MOD Squamous H Urine Bacteria Rare Ur Microscopic Review INDICATED Urine Culture Comments NOT INDICATED - Rads (name of study) CT abd Radiology: Final report received (No acute inflammatory process within the abdomen or pelvis. No bowel obstruction. No free fluid or free air. Hepatic steatosis. Prior cholecystectomy. Ill-defined patchy groundglass opacities in posterior aspect of bilateral lower lobes. Atypical pneumonia cannot be excluded) CXR Radiology: Final report received (Mild patchy opacity involving the left midlung, technically nonspecific. Low-grade bronchopneumonia cannot be excluded although this could represent scarring or atelectasis.) PD MEDICAL DECISION MAKING - ED course Complexity details: reviewed old records, reviewed results, re-evaluated patient, considered differential, d/w patient ED course: 64-year-old diabetic female presents to the emergency department with chief complaint of 2 weeks left upper quadrant abdominal pain and non-bloody diarrhea. She does report that she has been having hot flashes at home but denies any focal fever. Here in the emergency department routine lab testing which showed no significant leukocytosis. Her serum sodium is noted to be 129. This is likely reflected secondary to [address] A [address] of the abdomen did not show any acute focal or worrisome findings. There was concern that she may have bilateral lower lobe early pneumonia. A chest x-ray does confirm this. In the emergency department she is afebrile and without hypotension or tachycardia. Given the diarrhea for 2 weeks, subjective fevers we are completed COVID-19 screening. Patient is advised to remain in quarantine until the results are known. We will prescribe azithromycin for the findings on chest x- ray that suggest an early pneumonia. I will also recommend Imodium to help resolve the diarrhea. Patient was unable to provide a stool sample here in the emergency department but was advised to return a stool sample if she is able to obtain one at home. Departure - Departure Disposition: 01 Home, Self Care Clinical Impression: LUQ abdominal pain, Encounter for screening laboratory testing for COVID-19 virus, Acute abdominal pain Diarrhea Qualifiers: Diarrhea type: unspecified type Qualified Code(s): R19.7 - Diarrhea, unspecified Pneumonia Qualifiers: Pneumonia type: due to unspecified organism Laterality: bilateral Lung location: lower lobe of lung Qualified Code(s): J18.9 - Pneumonia, unspecified organism Condition: Stable Record reviewed to determine appropriate education?: Yes Follow-Up: ROMULO HARRIS, MSN, [employer] MANAGER [Primary Care Provider] - Prescriptions: Loperamide HCl [Imodium A-D] 2 mg PO BID PRN #20 tablet PRN Reason: Diarrhea Azithromycin [Zithromax] 0 mg PO DAILY #6 tablet Comments: Arlene I hope that you are feeling better soon. Today your labs were all essentially normal with the exception of your serum sodium that was 129. This is most likely due to the diarrhea you have had for the last 2 weeks. I would like you to take the Imodium once or twice a day to help with diarrhea. The CT scan of your abdomen did not show any worrisome findings. Your intestines were not inflamed. However it does suggest that you may be developing an early pneumonia in your lower lungs. Because of this we are screening you for COVID- 19. You must remain in isolation until we know these results. I would also like to start you on an antibiotic called azithromycin. Please fill this and take this as directed. We will not notify you of the COVID-19 results unless they are positive however they will be available for you on the [employer] portal in 48 to 72 hours. If at any point you are having bloody diarrhea, any difficulty breathing, chest pain feel excessively weak, have fainting episodes or feel that your symptoms are not improving please return immediately to the emergency department
[2020-01-28] MEDS ORDERED: IOVERSOL 320 100 ML VIAL IVP ONE ×2 (13:58→14:11)
[2020-01-28 14:02] LABS: BACTERIA,URINE Rare /HPF (None Seen); RBC,URINE None Seen /HPF (0-5); SQUAMOUS EPITHELIAL CELL,UR MOD Squamous (<= Few)
--- NOTE | 2020-01-28 14:22 | CT Report ---
PROCEDURE: Abdomen/Pelvis W INDICATIONS: LUQ abd pain; 2 weeks diarrhe CONTRAST: IV CONTRAST: Optiray 320 ml: 100 PO CONTRAST: *NO PO CONTRAST TECHNIQUE: After the administration of IV contrast, 5 mm thick sections acquired from the diaphragms to the symp hysis. 5 mm thick coronal and sagittal reformats were acquired. For radiation dose reduction, the f ollowing was used: automated exposure control, adjustment of mA and/or kV according to patient size. COMPARISON: 03/11/2014. FINDINGS: Image quality: Excellent. ABDOMEN: Lung bases: Ill-defined patchy groundglass opacities in posterior medial aspect of bilateral lower lo bes are seen. No pleural effusion or pneumothorax. Heart size is normal. Solid organs: Liver and spleen are normal in size. Moderate hepatic steatosis is seen. No discrete h epatic lesion. Gallbladder is surgically absent Biliary system is non dilated. Pancreas enhances no rmally. No adrenal nodules. Kidneys demonstrate normal size and enhancement, without hydronephrosis . Peritoneum and bowel: Bowel loops demonstrate normal wall thickness and caliber. No free fluid or a ir. Appendix is not definitively identified. No secondary signs of acute appendicitis is seen in rig ht lower quadrant abdomen. Nodes and vessels: No retroperitoneal or mesenteric adenopathy by size criteria. Aorta and inferior vena cava are normal in size. Mild to moderate amount of atherosclerotic calcifications are seen in abdominal aorta. Miscellaneous: No ventral hernias. PELVIS: Genitourinary: Bladder wall thickness is normal. Miscellaneous: No inguinal hernias or adenopathy. Bones: No suspicious bony lesions. No vertebral body compression fractures. IMPRESSION: 1. No acute inflammatory process within abdomen or pelvis. No bowel obstruction. No free fluid of aleksandr e air. 2. Hepatic steatosis. Prior cholecystectomy. 3. Ill-defined patchy groundglass opacities in posterior aspect of bilateral lower lobes. Atypical pn eumonia cannot be excluded. No pleural effusion or pneumothorax. Reviewed by: Vitor Guzman MD on 01/28/2020 1:21 PM [facility] Approved by: Vitor Guzman MD on 01/28/2020 1:21 PM [place] Station ID: [id number]
[2020-01-28 14:50] VITALS: BP 150/98
--- NOTE | 2020-01-28 15:13 | XRAY Report ---
PROCEDURE: Chest 1 View X-Ray INDICATIONS: chest pain TECHNIQUE: One view of the chest was acquired. COMPARISON: FINDINGS: Surgical changes and devices: None. Lungs and pleura: No pleural effusions or pneumothorax. Mild patchy opacity projecting the left midl aldo. No acute consolidation. Mediastinum: Mediastinal contours appear normal. Heart size is normal. Bones and chest wall: No suspicious bony lesions. Overlying soft tissues appear unremarkable. IMPRESSION: Mild patchy opacity involving the left midlung, technically nonspecific. Low-grade bronchopneumonia c annot excluded although this could represent scarring/atelectasis. If there is persistent clinical di agnostic uncertainty, recommend short interval follow-up chest radiographs after treatment for furthe r assessment. Reviewed by: Chepe Franco MD on 01/28/2020 3:12 PM PST Approved by: Chepe Franco MD on 01/28/2020 3:12 PM PST Station ID: [id number]
== END 2020-01-28 15:30 | disposition home or self-care (01) ==
LOC: ED 12:21
DX: U07.1 COVID-19 (principal); J18.9 Pneumonia, unspecified organism; R19.7 Diarrhea, unspecified; R10.12 Left upper quadrant pain; E11.9 Type 2 diabetes mellitus without complications; Z79.4 Long term (current) use of insulin; I10 Essential (primary) hypertension; F17.200 Nicotine dependence, unspecified, uncomplicated
CPT/HCPCS: 36415; 71045; 74177; 80053; 81001; 83690; 85025; 96374; 99284; J1170; Q9967; U0004; 81003; 87086

== ENCOUNTER 2020-03-25 08:00 | Outpatient (CLI) | payer MEDICARE ==
[2020-03-25 12:58] LABS: HEMOGLOBIN A1c% 6.6 % (4.27-6.07)
[2020-03-25 13:58] LABS: CREATININE 0.7 mg/dL (0.4-1.0)
== END 2020-03-25 23:59 ==
LOC: LAB.WCP 08:00
PROVIDERS: ATTEND Nurse Practitioner Family
DX: E11.9 Type 2 diabetes mellitus without complications (principal)
CPT/HCPCS: 36415; 80048; 83036

== ENCOUNTER 2020-07-16 08:00 | Outpatient (CLI) | payer MEDICARE ==
[2020-07-16 12:07] LABS: BASOPHILS # (AUTO) 0.1 10^3/uL (0.0-0.1); BASOPHILS % (AUTO) 0.8 %; EOSINOPHILS # (AUTO) 0.2 10^3/uL (0.0-0.7); EOSINOPHILS % (AUTO) 1.7 %; HCT - HEMATOCRIT 43.4 % (37.0-47.0); HGB - HEMOGLOBIN 13.8 g/dL (12.0-16.0); LYMPHOCYTES # (AUTO) 3.7 10^3/uL (1.5-3.5); LYMPHOCYTES % (AUTO) 42.9 %; MEAN CORPUSCULAR HGB CONC 31.8 g/dL (32.0-36.0); MEAN CORPUSCULAR VOLUME 88.2 fL (81.0-99.0); MEAN PLATELET VOLUME 11.5 fL (7.9-10.8); MONOCYTES # (AUTO) 0.5 10^3/uL (0.0-1.0); MONOCYTES % (AUTO) 6.2 %; NEUTROPHILS # (AUTO) 4.2 10^3/uL (1.5-6.6); NEUTROPHILS % (AUTO) 47.9 %; PLT - PLATELET COUNT 329 10^3/uL (130-450); RED BLOOD COUNT 4.92 10^6/uL (4.20-5.40); RED CELL DISTRIBUTION WIDTH 13.7 % (12.0-15.0); WHITE BLOOD COUNT 8.7 x10^3/uL (4.8-10.8)
[2020-07-16 12:30] LABS: ALBUMIN 4.5 g/dL (3.2-5.5); ALBUMIN/GLOBULIN RATIO 1.5 (1.0-2.2); ALKALINE PHOSPHATASE 40 IU/L (42-121); ALT ALANINE AMINOTRANSFERASE 20 IU/L (10-60); AST ASPARTATE AMINOTRANSFERASE 25 IU/L (10-42); BILIRUBIN,TOTAL 0.6 mg/dL (0.2-1.0); BUN - BLOOD UREA NITROGEN 26 mg/dL (6-20); CALCIUM 9.9 mg/dL (8.5-10.3); CARBON DIOXIDE - CO2 23 mmol/L (21-32); CHLORIDE 101 mmol/L (101-111); CHOL/HDL RATIO 3.3 (<4.4); CHOLESTEROL 132 mg/dL; CREATININE 0.7 mg/dL (0.4-1.0); GFR - MDRD 84 (>89); GLUCOSE 146 mg/dL (70-100); HDL CHOLESTEROL 40 mg/dL; LDL CHOLESTEROL,CALCULATED 71 mg/dL; LDL/HDL RATIO 1.8 (<4.4); POTASSIUM 4.2 mmol/L (3.5-5.0); SODIUM 134 mmol/L (135-145); TOTAL PROTEIN 7.6 g/dL (6.7-8.2); TRIGLYCERIDES 106 mg/dL; VLDL CHOLESTEROL 21 mg/dL
[2020-07-16 12:32] LABS: ESTIMATED AVERAGE GLUCOSE 143 mg/dL (70-100); HEMOGLOBIN A1c% 6.6 % (4.27-6.07)
[2020-07-16 12:35] LABS: THYROID STIMULATING HORMONE 1.03 uIU/mL (0.34-5.60)
== END 2020-07-16 23:59 | disposition home or self-care (01) ==
LOC: LAB.WCP 08:00
PROVIDERS: ATTEND Nurse Practitioner Family
DX: I10 Essential (primary) hypertension (principal); E11.9 Type 2 diabetes mellitus without complications; E78.1 Pure hyperglyceridemia; E78.5 Hyperlipidemia, unspecified
CPT/HCPCS: 36415; 80053; 80061; 83036; 83721; 84443; 85025

== ENCOUNTER 2020-09-01 06:10 | Day surgery (SDC) | payer MEDICARE, MEDICAID ==
[2020-09-01] MEDS ORDERED: LACTATED RINGERS 1,000 ML IV ONE ×2 (06:51→08:27)
[2020-09-01] MEDS ORDERED: PROPOFOL 200 MG/20 ML VIAL IVP ONE (06:52)
[2020-09-01] MEDS ORDERED: MIDAZOLAM 2 MG/2 ML VIAL ONE (06:52)
[2020-09-01] MEDS ORDERED: fentaNYL 100 MCG/2 ML VIAL ONE (06:52)
[2020-09-01] MEDS ORDERED: ATROPINE ABBOJECT 1 MG/10 ML SYRINGE IVP PRN (07:13)
[2020-09-01] MEDS ORDERED: HYDROmorphone 0.5 MG/0.5 ML SYRINGE IVP PRN ×2 (07:13→08:29)
[2020-09-01] MEDS ORDERED: fentaNYL 100 MCG/2 ML VIAL IVP PRN (07:13)
[2020-09-01] MEDS ORDERED: ePHEDrine 50 MG/ML VIAL IVP PRN (07:13)
[2020-09-01] MEDS ORDERED: NALOXONE 0.4 MG/ML VIAL IVP PRN (07:13)
[2020-09-01] MEDS ORDERED: ONDANSETRON 4 MG/2 ML VIAL IVP PRN ×2 (07:13→08:29)
[2020-09-01] MEDS ORDERED: MORPHINE 2 MG/ML CARPUJECT IVP PRN (07:13)
[2020-09-01] MEDS ORDERED: METOCLOPRAMIDE 10 MG/2 ML VIAL IVP PRN (07:13)
--- NOTE | 2020-09-01 07:14 | ANESTHESIA ---
Pre-Anesthesia VS, & Labs - Diagnosis Lipoma, L post neck - Procedure excision L posterior neck lipoma Vital Signs: Temp Pulse Resp BP Pulse Ox 36 C L 77 20 159/92 H 96 09/01/20 06:22 09/01/20 06:22 09/01/20 06:22 09/01/20 06:22 09/01/20 06:22 Height: 5 ft 7 in Weight (kg): 80 kg Body Mass Index: 27.6 BMI Classification: Overweight - NPO >8 hours - Is Patient ?: No - Lab Results Current Lab Results: Laboratory Tests 09/01/20 06:36: POC Whole Bld Glucose 214 H Lab results reviewed: Yes Home Medications and Allergies Home Medications: Ambulatory Orders Acetaminophen [Tylenol] 650 mg PO Q6H PRN 08/30/20 Insulin Glargine,Hum.rec.anlog [Basaglar Kwikpen U-100] 37 unit SUBQ QPM 08/30/20 Atorvastatin [Lovastatin] 80 mg PO QPM 12/05/13 Fenofibrate 160 mg PO DAILY 12/05/13 Metformin HCl 1,000 mg PO BID 12/05/13 Venlafaxine HCl [Effexor Xr] 150 mg PO DAILY 12/05/13 lisinopriL [Prinivil] 10 mg PO DAILY 01/28/20 Acetaminophen [Tylenol] 650 mg PO Q6H PRN 08/30/20 Insulin Glargine,Hum.rec.anlog [Basaglar Kwikpen U-100] 37 unit SUBQ QPM 08/30/20 Allergies/Adverse Reactions: Allergies Allergy/AdvReac Type Severity Reaction Status Date / Time No Known Drug Allergies Allergy Verified 08/18/19 10:07 Anes History & Medical History - Anesthetic History Anesthesia Complications: reports: No previous complications, Post-Operative Nausea/Vomiting Family history of Anesthesia Complications: Denies Family history of Malignant Hyperthermia: Denies - Medical History Cardiovascular: reports: Hypertension, High cholesterol Pulmonary: reports: None Gastrointestinal: reports: None Urinary: reports: Incontinence Neuro: reports: None Musculoskeletal: reports: None Endocrine/Autoimmune: reports: Type 2 diabetes Blood Disorders: reports: None Skin: reports: None Smoking Status: Former smoker - Surgical History General: reports: Cholecystectomy Eyes Ears Nose Throat (EENT): reports: Cataracts Gynecologic: reports: section Exam General: Alert, Oriented x3, Cooperative Dental: WNL Mouth Openin Fingerbreadth Neck Mobility: Normal Mallampati classification: II Respiratory: Lungs clear, Normal breath sounds, No respiratory distress Cardiovascular: Regular rate Neurological: Normal speech Mental/Cognitive Status: Alert/Oriented X3, Normal for patient Cognitive Status: Within normal limits Plan Anesthesia Type: General Consent for Procedure(s) Verified and Reviewed: Yes Code Status: Attempt Resuscitation ASA classification: 2-Mild systemic disease Is this case an emergency?: No
[2020-09-01] MEDS ORDERED: BUPIVACAINE 0.25% PF 30 ML VIAL ONE (07:17)
[2020-09-01] MEDS ORDERED: ROCURONIUM 50 MG/5 ML VIAL ONE (07:20)
--- NOTE | 2020-09-01 07:21 | HISTORY & PHYSICAL EXAMINATION ---
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 : reports: Incontinence HEENT: reports: Chronic vision loss Psych: reports: Depression, Anxiety Musculoskeletal: reports: None Derm: reports: None MRSA Hx?: No - Past Surgical History General: reports: 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 HEENT: reports: Cataracts - POLST Patient has POLST: No Meds/Allgy - Home Medications Home Medications: Ambulatory Orders Medication Instructions Recorded Confirmed Atorvastatin [Lovastatin] 80 mg PO QPM 12/05/13 08/31/20 Fenofibrate 160 mg PO DAILY 12/05/13 08/31/20 Metformin HCl 1,000 mg PO BID 12/05/13 08/31/20 Venlafaxine HCl [Effexor Xr] 150 mg PO DAILY 12/05/13 08/31/20 lisinopriL [Prinivil] 10 mg PO DAILY 01/28/20 08/31/20 Acetaminophen [Tylenol] 650 mg PO Q6H PRN 08/30/20 08/30/20 Insulin Glargine,Hum.rec.anlog 37 unit SUBQ QPM 08/30/20 09/01/20 [Basaglar Kwikpen U-100] - Allergies Allergies/Adverse Reactions: Allergies Allergy/AdvReac Type Severity Reaction Status Date / Time No Known Drug Allergies Allergy Verified 08/18/19 10:07 Review of Systems - Other Findings Other Findings: gerd symptoms much improved to resolved. 10 pt ros as above otherwise unremarkable Exam - Vital Signs Reviewed Vital Signs: Yes Vital Signs: Vital Signs x48h Temp Pulse Resp BP Pulse Ox 09/01/20 06:22 36 C L 77 20 159/92 H 96 - Physical Exam General Appearance: positive: Alert Eyes Bilateral: positive: PERRL, EOMI ENT: positive: No signs of dehydration Neck: positive: No JVD, Other ( 5 cm upper posterior neck lipoma) Respiratory: positive: Breath sounds nml Cardiovascular: positive: Regular rate & rhythm Abdomen: positive: Non-tender, No distention Neurologic/Psychiatric: positive: Oriented x3 Conclusion/Plan - Problem List (1) Lipoma of neck Conclusion/Plan: plan excision. parq held and consent obtained - Lab Results Lab results reviewed: Yes
[2020-09-01] MEDS ORDERED: DEXAMETHASONE 4 MG/ML VIAL ONE (07:42)
[2020-09-01] MEDS ORDERED: BUPIVACAINE 0.25% PF 30 ML VIAL SUBQ ONE (07:56)
[2020-09-01] MEDS ORDERED: LACTATED RINGERS 1,000 ML IV SCH (08:00)
[2020-09-01] MEDS ORDERED: GLYCOPYRROLATE 1 MG/5 ML VIAL ONE (08:00)
[2020-09-01] MEDS ORDERED: NEOSTIGMINE 1 MG/1 ML 10 ML MDV ONE (08:00)
[2020-09-01] MEDS ORDERED: HYDROcod/ACETAM 5/325 MG TABLET PO PRN (08:29)
--- NOTE | 2020-09-01 08:35 | OPERATIVE REPORT ---
Operative Report - General Procedure Date: 09/01/20 Planned Procedure: excision posterior neck lipoma Pre-Op Diagnosis: posterior neck 5 cm lipoma Procedure Performed: excision posterior neck 4 cm lipoma 4 cm posterior neck intermediate repair Post Op Diagnosis: posterior neck 4 cm lipoma - Procedure Note Primary Surgeon: earnest colón md Secondary Surgeon: george Anesthesia Technique: General ET tube, Local Pathology: benign not sent Estimated Blood Loss (mL): 0 Drain/Tube Type: Other (nonne) Findings: as above Complications: none - Other Other Information/Narrative: The patient was properly identified brought to the operating room and placed in supine position. General endotracheal anesthesia was induced. She was repositioned in left lateral decubitus. She was carefully padded. She was prepped and draped in a sterile fashion. Antibiotics were not given. Local anesthetic was given throughout the procedure. A 4 cm posterior neck elliptical incision was made. Dissection proceeded down to the lipoma. The lipoma was removed in its entirety with gentle retraction and cautery. Hemostasis was assured. Intermediate repair was then performed. Deep interrupted 2-0 Vicryl sutures were placed. Skin was closed with buried interrupted 3-0 vicryl followed followed by a running 4-0 Monocryl suture. Skin glue was used as a dressing. She tolerated the procedure well was awakened and brought to recovery in good condition.
[2020-09-01 09:21] VITALS: BP 142/74
--- NOTE | 2020-09-01 10:59 | ANESTHESIA POST OP EVALUATION ---
Anesthesia Post Eval - Post Anesthesia Eval Vitals: Last Vital Signs Temp 36.4 C L 09/01/20 09:21 Pulse 73 09/01/20 09:21 Resp 16 09/01/20 09:21 BP 142/74 H 09/01/20 09:21 Pulse Ox 98 09/01/20 09:21 CV Function Including HR & BP: Stable Pain Control: Satisfactory Nausea & Vomiting: Negative Mental Status: Baseline Respiratory Status: Airway Patent Hydration Status: Satisfactory Anesthesia Complications: None
== END 2020-09-01 06:11 | disposition home or self-care (01) ==
LOC: SDS 06:10
PROVIDERS: ATTEND Surgery
DX: D17.0 Benign lipomatous neoplasm of skin and subcutaneous tissue of head, face and neck (principal); Z87.891 Personal history of nicotine dependence
CPT/HCPCS: 21552; J7120

== ENCOUNTER 2020-10-01 06:26 | Day surgery (SDC) | payer MEDICARE, MEDICAID ==
[2020-10-01] MEDS ORDERED: LACTATED RINGERS 1,000 ML IV ONE ×2 (06:42→08:49)
[2020-10-01] MEDS ORDERED: MIDAZOLAM 2 MG/2 ML VIAL ONE ×3 (07:22→07:50)
[2020-10-01] MEDS ORDERED: fentaNYL 250 MCG/5 ML VIAL ONE (07:22)
--- NOTE | 2020-10-01 07:22 | HISTORY & PHYSICAL EXAMINATION ---
Chief Complaint - Chief Complaint Chief Complaint: stomach burning, reflux, need for colon ca screening History of Present Illness - History Obtained From Records Reviewed: yes History obtained from: pt Exam Limitations: none - History of Present Illness HPI Comment/Other: No recent colon cancer screening. She has been having more epigastric burning and reflux over the last several months. 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 HEENT: reports: Cataracts, Tonsil/Adenoidectomy - POLST Patient has POLST: No Meds/Allgy - Home Medications Home Medications: Ambulatory Orders Medication Instructions Recorded Confirmed Atorvastatin [Lovastatin] 80 mg PO QPM 12/05/13 09/30/20 Fenofibrate 160 mg PO DAILY 12/05/13 09/30/20 Metformin HCl 1,000 mg PO BID 12/05/13 09/30/20 Venlafaxine HCl [Effexor Xr] 150 mg PO DAILY 12/05/13 09/30/20 lisinopriL [Prinivil] 10 mg PO DAILY 01/28/20 09/30/20 Acetaminophen [Tylenol] 650 mg PO Q6H PRN 08/30/20 09/30/20 Insulin Glargine,Hum.rec.anlog 37 unit SUBQ QPM 08/30/20 09/30/20 [Basaglar Kwikpen U-100] HYDROcod/ACETAM 5/325 [[place] 5/325] 1 each PO Q6H PRN #15 tablet 09/01/20 09/30/20 - Allergies Allergies/Adverse Reactions: Allergies Allergy/AdvReac Type Severity Reaction Status Date / Time No Known Drug Allergies Allergy Verified 09/30/20 14:23 Review of Systems - Other Findings Other Findings: 10 pt ros as above otherwise unremarkable Exam - Vital Signs Reviewed Vital Signs: Yes Vital Signs: Vital Signs x48h Temp Pulse Resp BP Pulse Ox 10/01/20 06:30 36.8 C 80 23 143/79 H 96 - Physical Exam General Appearance: positive: No acute distress, Alert Eyes Bilateral: positive: PERRL, EOMI Neck: positive: No JVD Respiratory: positive: No respiratory distress, Breath sounds nml Cardiovascular: positive: Regular rate & rhythm Abdomen: positive: Non-tender, No distention Neurologic/Psychiatric: positive: Oriented x3 Conclusion/Plan - Problem List (1) Colon cancer screening Conclusion/Plan: plan colonoscopy. She has had more epigastric burning pain and reflux. plan egd. parq held and consent obtained.
[2020-10-01] MEDS ORDERED: LIDO GARGLE 30 ML BOTTLE ONE (07:26)
[2020-10-01] MEDS ORDERED: LIDO GARGLE 30 ML BOTTLE PO ONE (07:28)
[2020-10-01] MEDS ORDERED: TETRACAINE/BENZOCAINE/BUTAMBEN 5 GM BOTTLE MM ONE (07:29)
[2020-10-01] MEDS ORDERED: ONDANSETRON 4 MG/2 ML VIAL ONE (07:55)
[2020-10-01] MEDS ORDERED: PROPOFOL 200 MG/20 ML VIAL IVP ONE (08:09)
[2020-10-01 09:02] VITALS: BP 112/71
== END 2020-10-01 06:27 | disposition home or self-care (01) ==
LOC: SDS 06:26
PROVIDERS: ATTEND Surgery
PROC: 0DB78ZX Excision of Stomach, Pylorus, Via Natural or Artificial Opening Endoscopic, Diagnostic (ICD-10-PCS; 2020-10-01)
PROC: 0DBP8ZZ Excision of Rectum, Via Natural or Artificial Opening Endoscopic (ICD-10-PCS; principal; 2020-10-01 07:30)
PROC: 0DBM8ZZ Excision of Descending Colon, Via Natural or Artificial Opening Endoscopic (ICD-10-PCS; 2020-10-01 07:30)
DX: Z12.11 Encounter for screening for malignant neoplasm of colon (principal); K29.70 Gastritis, unspecified, without bleeding; K21.9 Gastro-esophageal reflux disease without esophagitis; K57.30 Diverticulosis of large intestine without perforation or abscess without bleeding; D12.8 Benign neoplasm of rectum; K63.5 Polyp of colon; K63.89 Other specified diseases of intestine; E11.9 Type 2 diabetes mellitus without complications; I10 Essential (primary) hypertension; H54.7 Unspecified visual loss; F32.9 Major depressive disorder, single episode, unspecified; F41.9 Anxiety disorder, unspecified; Z79.4 Long term (current) use of insulin; Z79.899 Other long term (current) drug therapy
CPT/HCPCS: 43239; 45380; 45385; A9270; J3010; J7120

== ENCOUNTER 2021-03-22 11:41 | Outpatient (CLI) | payer MEDICARE, BC ==
[2021-03-22 18:23] LABS: BASOPHILS # (AUTO) 0.1 10^3/uL (0.0-0.1); BASOPHILS % (AUTO) 0.8 %; EOSINOPHILS # (AUTO) 0.1 10^3/uL (0.0-0.7); EOSINOPHILS % (AUTO) 1.1 %; HGB - HEMOGLOBIN 13.7 g/dL (12.0-16.0); LYMPHOCYTES # (AUTO) 2.8 10^3/uL (1.5-3.5); LYMPHOCYTES % (AUTO) 30.7 %; MEAN CORPUSCULAR HEMOGLOBIN 28.1 pg (27.0-31.0); MEAN CORPUSCULAR HGB CONC 31.9 g/dL (32.0-36.0); MEAN CORPUSCULAR VOLUME 88.1 fL (81.0-99.0); MEAN PLATELET VOLUME 12.1 fL (7.9-10.8); MONOCYTES # (AUTO) 0.6 10^3/uL (0.0-1.0); MONOCYTES % (AUTO) 6.9 %; NEUTROPHILS # (AUTO) 5.5 10^3/uL (1.5-6.6); PLT - PLATELET COUNT 322 10^3/uL (130-450); RED BLOOD COUNT 4.88 10^6/uL (4.20-5.40); RED CELL DISTRIBUTION WIDTH 13.7 % (12.0-15.0); WHITE BLOOD COUNT 9.2 x10^3/uL (4.8-10.8)
[2021-03-22 19:05] LABS: ALBUMIN 4.3 g/dL (3.2-5.5); ALBUMIN/GLOBULIN RATIO 1.4 (1.0-2.2); ALKALINE PHOSPHATASE 40 IU/L (42-121); ALT ALANINE AMINOTRANSFERASE 21 IU/L (10-60); AST ASPARTATE AMINOTRANSFERASE 25 IU/L (10-42); BILIRUBIN,TOTAL 0.4 mg/dL (0.2-1.0); BUN - BLOOD UREA NITROGEN 27 mg/dL (6-20); CALCIUM 10.2 mg/dL (8.5-10.3); CARBON DIOXIDE - CO2 25 mmol/L (21-32); CHLORIDE 102 mmol/L (101-111); CHOL/HDL RATIO 3.2 (<4.4); CHOLESTEROL 134 mg/dL; CREATININE 0.8 mg/dL (0.4-1.0); GFR - MDRD 72 (>89); GLUCOSE 218 mg/dL (70-100); HDL CHOLESTEROL 42 mg/dL; LDL CHOLESTEROL,CALCULATED 46 mg/dL; LDL/HDL RATIO 1.1 (<4.4); POTASSIUM 4.3 mmol/L (3.5-5.0); SODIUM 140 mmol/L (135-145); TOTAL PROTEIN 7.4 g/dL (6.7-8.2); TRIGLYCERIDES 229 mg/dL; VLDL CHOLESTEROL 46 mg/dL
[2021-03-22 21:32] LABS: ESTIMATED AVERAGE GLUCOSE 160 mg/dL (70-100); HEMOGLOBIN A1c% 7.2 % (4.27-6.07)
== END 2021-03-22 11:42 | disposition home or self-care (01) ==
LOC: LAB.N 11:41
PROVIDERS: ATTEND Family Medicine
DX: E11.9 Type 2 diabetes mellitus without complications (principal)
CPT/HCPCS: 36415; 80053; 80061; 83036; 83721; 85025

== ENCOUNTER 2021-06-09 08:00 | Outpatient (CLI) | payer MEDICARE, BC ==
--- NOTE | 2021-06-09 16:47 | XRAY Report ---
PROCEDURE: Chest 2 View X-Ray INDICATIONS: Cough TECHNIQUE: 2 view(s) of the chest. COMPARISON: 01/28/2020 FINDINGS: Surgical changes and devices: None. Lungs and pleura: No pleural effusions or pneumothorax. Lungs are clear. Mediastinum: Mediastinal contours are normal. Heart size is normal. Bones and chest wall: No suspicious bony abnormalities. Soft tissues appear unremarkable. IMPRESSION: No acute cardiopulmonary process demonstrated radiographically. Reviewed by: Epifanio Vyas MD on 06/09/2021 4:45 PM PDT Approved by: Epifanio Vyas MD on 06/09/2021 4:45 PM PDT Station ID: [id number]
== END 2021-06-09 23:59 | disposition home or self-care (01) ==
LOC: DI.N 08:00
PROVIDERS: ATTEND Physician Assistant Medical
DX: R05.9 Cough, unspecified (principal)

== ENCOUNTER 2021-11-08 08:38 | Outpatient (CLI) | payer MEDICARE ==
[2021-11-08 12:53] LABS: BASOPHILS # (AUTO) 0.1 10^3/uL (0.0-0.1); BASOPHILS % (AUTO) 0.8 %; EOSINOPHILS # (AUTO) 0.1 10^3/uL (0.0-0.7); EOSINOPHILS % (AUTO) 1.3 %; HCT - HEMATOCRIT 42.9 % (37.0-47.0); HGB - HEMOGLOBIN 13.7 g/dL (12.0-16.0); LYMPHOCYTES # (AUTO) 3.2 10^3/uL (1.5-3.5); LYMPHOCYTES % (AUTO) 34.2 %; MEAN CORPUSCULAR HGB CONC 31.9 g/dL (32.0-36.0); MEAN CORPUSCULAR VOLUME 87.6 fL (81.0-99.0); MEAN PLATELET VOLUME 11.6 fL (7.9-10.8); MONOCYTES # (AUTO) 0.6 10^3/uL (0.0-1.0); MONOCYTES % (AUTO) 6.5 %; NEUTROPHILS # (AUTO) 5.3 10^3/uL (1.5-6.6); NEUTROPHILS % (AUTO) 56.8 %; PLT - PLATELET COUNT 352 10^3/uL (130-450); RED CELL DISTRIBUTION WIDTH 13.8 % (12.0-15.0); WHITE BLOOD COUNT 9.2 x10^3/uL (4.8-10.8)
[2021-11-08 13:21] LABS: BILIRUBIN,URINE NEGATIVE (NEGATIVE); GLUCOSE, URINE (UA) NEGATIVE (NEGATIVE); KETONES,URINE (UA) NEGATIVE (NEGATIVE); LEUKOCYTE ESTERASE, URINE TRACE (NEGATIVE); NITRITE,URINE NEGATIVE (NEGATIVE); OCCULT BLOOD,URINE NEGATIVE (NEGATIVE); PH,URINE 5.5 PH (5.0-7.5); PROTEIN,URINE NEGATIVE (NEGATIVE); UROBILINOGEN,URINE 0.2 (NORMAL) E.U./dL (NORMAL)
[2021-11-08 13:22] LABS: CLARITY,URINE CLEAR (CLEAR)
[2021-11-08 13:34] LABS: CREATININE,URINE 74.2 mg/dL; MICROALBUM/CREATININE RATIO,UR 9.4 ug/mg (<30.0); MICROALBUMIN,URINE 0.7 mg/dL (0-300.0)
[2021-11-08 13:44] LABS: ALBUMIN 4.6 g/dL (3.2-5.5); ALBUMIN/GLOBULIN RATIO 1.5 (1.0-2.2); ALKALINE PHOSPHATASE 42 IU/L (42-121); ALT ALANINE AMINOTRANSFERASE 26 IU/L (10-60); AST ASPARTATE AMINOTRANSFERASE 25 IU/L (10-42); BILIRUBIN,TOTAL 0.7 mg/dL (0.2-1.0); BUN - BLOOD UREA NITROGEN 23 mg/dL (6-20); CALCIUM 10.2 mg/dL (8.5-10.3); CARBON DIOXIDE - CO2 26 mmol/L (21-32); CHLORIDE 102 mmol/L (101-111); CHOLESTEROL 139 mg/dL; CREATININE 0.7 mg/dL (0.4-1.0); GFR - MDRD 83 (>89); GLUCOSE 176 mg/dL (70-100); HDL CHOLESTEROL 46 mg/dL; LDL CHOLESTEROL,CALCULATED 63 mg/dL; LDL/HDL RATIO 1.4 (<4.4); POTASSIUM 4.3 mmol/L (3.5-5.0); SODIUM 137 mmol/L (135-145); TOTAL PROTEIN 7.6 g/dL (6.7-8.2); TRIGLYCERIDES 150 mg/dL; VLDL CHOLESTEROL 30 mg/dL
[2021-11-08 13:53] LABS: ESTIMATED AVERAGE GLUCOSE 157 mg/dL (70-100); HEMOGLOBIN A1c% 7.1 % (4.27-6.07)
[2021-11-08 13:54] LABS: BACTERIA,URINE Rare /HPF (None Seen); RBC,URINE 0-5 /HPF (0-5); SQUAMOUS EPITHELIAL CELL,UR FEW Squamous (<= Few); WBC,URINE 0-3 /HPF (0-5)
== END 2021-11-08 08:39 | disposition home or self-care (01) ==
LOC: LAB.N 08:38
PROVIDERS: ATTEND Nurse Practitioner Family
DX: I10 Essential (primary) hypertension (principal); N32.81 Overactive bladder; E78.1 Pure hyperglyceridemia; E78.5 Hyperlipidemia, unspecified; E11.9 Type 2 diabetes mellitus without complications; Z79.4 Long term (current) use of insulin; E55.9 Vitamin D deficiency, unspecified
CPT/HCPCS: 36415; 80053; 80061; 81001; 81003; 82043; 82306; 82570; 83036; 83721; 84443; 85025; 87086

== ENCOUNTER → 2022-01-16 | Outpatient (CLI) | payer MEDICARE | LOC: LAB.WCP 08:00 | PROVIDERS: ATTEND Nurse Practitioner Family | DX: E11.9 Type 2 diabetes mellitus without complications (principal) | CPT/HCPCS: 82962 ==

== ENCOUNTER 2022-04-06 08:00 | Outpatient (CLI) | payer MEDICARE | END 2022-04-06 23:59 | disposition home or self-care (01) | LOC: LAB.N 08:00 | PROVIDERS: ATTEND Registered Nurse | DX: S09.90XA Unspecified injury of head, initial encounter (principal) | CPT/HCPCS: 82962 ==